=== PATIENT | male | born 2000 | race African-American/Black ===

== ENCOUNTER 2023-09-04 09:37 | Emergency (ER) | payer SELFPAY ==
[~2023-09-04] VITALS: Ht 177.8 cm; Wt 69.0 kg
[2023-09-04 09:46] VITALS: O2SAT 100
[2023-09-04 10:17] LABS: HEMATOCRIT. 46.6 % (42.0-52.0); HEMOGLOBIN. 15.6 g/dL (14.0-18.0); MEAN CORPUSCULAR HEMOGLOBIN 31.8 pg (28.0-32.0); MEAN CORPUSCULAR HGB CONC 33.4 g/dL (31.0-37.0); MEAN CORPUSCULAR VOLUME 95.2 fL (80.0-94.0); PLATELET 132 x1000/uL (130-400); RED CELL DISTRIBUTION WIDTH 13.6 % (11.6-14.6); WHITE BLOOD COUNT 13.6 x1000/uL (4.5-11.0)
[2023-09-04 10:31] LABS: ALANINE AMINOTRANSFERASE 19 IU/L (10-49); ALBUMIN 4.7 g/dL (3.2-4.8); ASPARTATE AMINOTRANSFERASE 20 IU/L (<34); BILIRUBIN TOTAL 1.1 mg/dL (0.1-1.0); CALCIUM 9.8 mg/dL (8.7-10.4); CARBON DIOXIDE 28 mEq/L (21-32); CHLORIDE 102 mEq/L (98-107); CREATININE 0.8 mg/dL (0.6-1.3); GLUCOSE 140 mg/dL (70-105); POTASSIUM 4.2 mEq/L (3.5-5.1); PROTEIN TOTAL 7.9 g/dL (6.0-8.3); SODIUM 138 mEq/L (136-145); UREA NITROGEN BLOOD 12 mg/dL (9-23)
[2023-09-04 10:37] LABS: DIFFERENTIAL COMMENT 1
[2023-09-04 10:43] LABS: CLARITY URINE CLEAR (CLEAR); COLOR URINE YELLOW (YELLOW); GLUCOSE URINE TRACE (NEGATIVE); KETONES URINE 3+ (NEGATIVE); LEUKOCYTE ESTERASE URINE NEGATIVE (NEGATIVE); NITRITE URINE NEGATIVE (NEGATIVE); OCCULT BLOOD URINE NEGATIVE (NEGATIVE); PROTEIN URINE NEGATIVE (NEGATIVE); SPECIFIC GRAVITY URINE 1.029 (1.005-1.030)
[2023-09-04 12:08] LABS: PLATELET ESTIMATE NORMAL
[2023-09-04] MEDS ORDERED: ONDANSETRON 4MG ODT PO ONE (12:15)
[2023-09-04 12:25] LABS: MUCUS URINE 3+ /lpf (NONE/TRACE)
[2023-09-04 12:33] LABS: RBC URINE NONE SEEN /hpf (0-2); SQUAMOUS EPITHELIAL CELL URINE RARE /lpf (RARE/1+); WBC URINE NONE SEEN /hpf (0-2)
[2023-09-04 12:34] LABS: BACTERIA URINE TRACE
[2023-09-04] MEDS ORDERED: MAGNESIUM/ALUMINUM HYDROXIDE/SIMETHICONE 30ML UDC PO ONE (13:00)
[2023-09-04] MEDS ORDERED: FAMOTIDINE 20MG TABLET PO ONE (13:00)
[2023-09-04 14:30] VITALS: BP 111/68
[2023-09-04] MEDS ORDERED: KETOROLAC 30MG/ML VIAL IM ONE (14:30)
[2023-09-04] MEDS ORDERED: CYCLOBENZAPRINE 10MG TABLET PO ONE (14:30)
[2023-09-04] MEDS ORDERED: NAPR-1176 MT (14:45)
[2023-09-04] MEDS ORDERED: ONDA4TAB50 MT (14:45)
[2023-09-04 15:33] VITALS: PULSE 68; RESP 14; TEMP 98.5
== END 2023-09-04 15:35 | disposition home or self-care (01) ==
LOC: ER 09:37
DX: A08.4 Viral intestinal infection, unspecified (principal)
CPT/HCPCS: 99284; 80053; 81003; 83690; 85025; 36415; 96372; Q0162; J1885